=== PATIENT | male | born 1950 | race Two or more races ===

== ENCOUNTER 2019-11-15 15:33 | Emergency (ER) | payer MEDICARE, OTHER ==
[~2019-11-15] VITALS: Ht 170.2 cm; Wt 72.6 kg
--- NOTE | 2019-11-15 15:42 | NUR ---
PT BIBRA FROM HOME TO ER BED 03. PER REPORT PT WAS DRIVING WHEN SUDDENLY DEVELOP SUDDEN ONSET CHEST PAIN. PT GOWNED AND PLACED ON MONITOR. [employer]. AWAITING MD SALAZAR.
--- NOTE | 2019-11-15 15:50 | NUR ---
DR MILLARD AT BEDSIDE FOR EVAL.
[2019-11-15] MEDS ORDERED: CLON0.1T PO (15:51)
[2019-11-15] MEDS ORDERED: FINA5TAB11 PO (15:51)
[2019-11-15] MEDS ORDERED: METF-440 PO (15:51)
[2019-11-15] MEDS ORDERED: LISI10TA5 PO (15:51)
[2019-11-15] MEDS ORDERED: TAMS-12 PO (15:51)
[2019-11-15 15:58] LABS: BASOPHILS # (AUTO) 0.1 /CMM (0.0-0.2); BASOPHILS % (AUTO) 1.1 % (0.0-2.0); EOSINOPHILS % (AUTO) 1.1 % (0.0-6.0); HEMATOCRIT 40 % (39-51); HEMOGLOBIN 13.6 g/dL (13.5-17.5); LYMPHOCYTES # (AUTO) 2.4 /CMM (0.8-4.8); LYMPHOCYTES % (AUTO) 29.2 % (20.0-44.0); MEAN CORPUSCULAR HGB CONC 34 g/dl (31.0-36.0); MEAN CORPUSCULAR VOLUME 93 fL (80-96); MONOCYTES # (AUTO) 0.9 /CMM (0.1-1.30); MONOCYTES % (AUTO) 10.5 % (2.0-12.0); NEUTROPHILS # (AUTO) 4.8 /CMM (1.8-8.9); NEUTROPHILS % (AUTO) 58.1 % (43.0-81.0); PLATELET COUNT (AUTO) 210 /CMM (150-450); RED BLOOD CELL COUNT(AUTO) 4.35 MIL/uL (4.5-6.0); WHITE BLOOD COUNT (AUTO) 8.2 K/uL (4.3-11.0)
--- NOTE | 2019-11-15 16:01 | NUR ---
RADIOLOGY AT BEDSIDE FOR CHEST XRAY.
[2019-11-15 16:10] LABS: CREATININE 0.7 mg/dL (0.6-1.3); POTASSIUM 3.7 mmol/L (3.5-5.1)
--- NOTE | 2019-11-15 17:40 | NUR ---
Patient does not wish to proceed with medical care recommended by Dr. Sam. Patient given information related to possible complications, up to and including , which could occur as a result of leaving the hospital at this time. Patient verbalizes understanding of risks involved due to leaving against medical advice. Patient has signed AMA form.
[2019-11-15 17:49] VITALS: BP 142/80
== END 2019-11-15 17:50 | disposition home or self-care (01) ==
LOC: ER 15:45
DX: R07.89 Other chest pain (principal); R94.31 Abnormal electrocardiogram [ECG] [EKG]; I10 Essential (primary) hypertension; E78.5 Hyperlipidemia, unspecified; E11.9 Type 2 diabetes mellitus without complications; Z91.14 Patient's other noncompliance with medication regimen; Z79.899 Other long term (current) drug therapy
CPT/HCPCS: 36415; 71045-TC; 80048-TC; 84484-TC; 85025-TC; 87081-TC